=== PATIENT | female | born 1955 | race Caucasian/White ===

== ENCOUNTER 2018-02-18 21:54 | Emergency (ER) | payer BC ==
[~2018-02-18] VITALS: Ht 152.4 cm; Wt 107.5 kg
[~2018-02-18 21:54] MED LIST: CITALOPRAM10 MG/5 M1 PO; ZESTORETIC,P1 TABLE2 PO
[2018-02-18 22:33] LABS: HEMATOCRIT 39.3 % (36.0-46.0); HEMOGLOBIN 13.5 G/DL (11.9-15.5); MCHC 34.4 G/DL (30.0-36.0); MCV 90.3 FL (83-99); RBC DIS.WIDTH-CV 13.5 % (11.8-14.6); RBC DIS.WIDTH-SD 44.6 % (39-53); RED BLOOD COUNT 4.35 M/uL (3.80-5.20); WHITE BLOOD COUNT 9.7 K/uL (4.1-10.2)
[2018-02-18 22:41] LABS: CHLORIDE 104 mEq/L (99-109)
[2018-02-18 22:42] LABS: POTASSIUM 4.2 mEq/L (3.7-5.4); SODIUM 139 mEq/L (136-147)
[2018-02-18 22:43] LABS: GLUCOSE 107 mg/dL (70-99)
[2018-02-18 22:47] LABS: CREATININE 0.8 mg/dL (0.6-1.3); GFR ESTIMATE (CALCULATED) > 59 mL/min/
[2018-02-18 22:48] LABS: UREA NITROGEN (BUN) 23 mg/dL (9-23)
[2018-02-18 22:52] LABS: TROP-I INTERPRETATION NEGATIVE; TROPONIN-I 0.01 ng/mL (0.0-0.30)
[2018-02-19 00:24] LABS: PLAT.SUFFICIENCY ADEQUATE; PLATELET COUNT UNABLE TO REPORT K/uL (156-360)
[2018-02-19 01:25] LABS: TROP-I INTERPRETATION NEGATIVE; TROPONIN-I < 0.01 ng/mL (0.0-0.30)
[2018-02-19 01:58] VITALS: BP 135/83
== END 2018-02-19 02:16 | disposition home or self-care (01) ==
LOC: EME 21:54
PROVIDERS: Emergency Medicine
DX: R07.9 Chest pain, unspecified (principal); I10 Essential (primary) hypertension
CPT/HCPCS: 71046; 80048; 84484; 85027; 93005; 99281; 99284